=== PATIENT | female | born 1975 | race Two or more races ===

== ENCOUNTER 2024-11-15 20:44 | Emergency (ER) | payer MEDICAID, SELFPAY ==
--- NOTE | 2024-11-15 20:47 | EKG_ITS ---
[facility] Test Date: 2024-11-15 Pat Name: BRITANY TILLMAN Department: Room: - Gender: Female [employer]: : 1975 Requested By: ED Temporary Provider Order Number: [id number] Reading MD: ED Temporary Provider Measurements Intervals [place] Rate: 75 P: 44 RI: 141 QRS: 10 QRSD: 88 T: 28 QT: 383 QTc: 430 Interpretive Statements SINUS RHYTHM No previous ECG available for comparison /store/S0/[id number].pdf
[2024-11-15 21:25] VITALS: BP 158/102; BP 181/118; PULSE 82; RESP 24; TEMP 36.8; O2SAT 99
--- NOTE | 2024-11-15 21:30 | XR_ITS ---
Examination: CT brain head without contrast. 2-D sagittal coronal reconstructions Date and time of exam:November 15, 2024, 10:45 PM Indications: Headache vertigo and dizziness today CTDI: vol (mGy):56.7 DLP: (mGycm):1091 Technique: Multiple CT axial sections of the brain have been obtained, 5 mm slice thickness. Contrast has not been administered. 2-D sagittal, coronal reconstructions have been obtained Low dose protocols were performed. One or more of the following dose reduction techniques were used; automated exposure control, adjustment of the mA and/or KV according to patient size, use of iterative reconstruction technique. Findings: No significant ventricular enlargement. Intra-axial or extra-axial hemorrhage density is not seen. No mass effect or midline shift Basal cisterns are not remarkable. Fourth ventricle is midline. Cranial vault intact. Impression: Negative for acute hemorrhage, mass effect or midline shift If symptoms persist, consider brain MRI follow-up
--- NOTE | 2024-11-15 21:30 | XR_ITS ---
Examination: PA chest single view Technique: Upright PA chest single view Date and time: November 15, 2024, 2150 hrs. Indications: Headaches dizziness chest pain shortness of breath beginning 4 days ago Findings: Normal heart size Nodule with apparent calcification in the left lower lobe, 8 mm No pneumonia or pulmonary edema The osseous structures are intact Impression: No active disease Given the absence of prior chest films recommend 3 month follow-up PA chest to document stability of small nodule left lower lobe
--- NOTE | 2024-11-15 21:31 | PD.EDRME ---
Rapid Medical Screening Exam RME Arrival date/time: 11/15/24 20:44 This is a case of 49-year-old female with history of hypertension came in in the emergency room due to headache dizzines chest pain and shortness of breath since Friday no palpitation due to worsening of the symptoms this patient decided to start consult here in the emergency room patient is requesting Ativan because she is feeling anxious at the time of exam Chief Complaint: Dizziness Time Seen by Provider: 11/15/24 21:16 Vital signs: Vital Signs Temperature 98.2 F 11/15/24 21:25 Pulse Rate 82 11/15/24 21:25 Respiratory Rate 24 H 11/15/24 21:25 Blood Pressure 181/118 H 11/15/24 21:25 Pulse Oximetry (%) 99 11/15/24 21:25 Oxygen Delivery Method Room Air 11/15/24 21:25
[2024-11-15 21:45] VITALS: BP 181/118; PULSE 82
[2024-11-15 22:18] LABS: Basophils # (Auto) 0.1 Thou/mm3 (0.0-0.2); Basophils % (Auto) 1 % (0-2.5); Eosinophils # (Auto) 0.2 Thou/mm3 (0.0-0.5); Eosinophils % (Auto) 2 % (0-10); Hematocrit 38.6 % (36.0-46.0); Hemoglobin 13.2 g/dL (12.0-16.0); Immature Granulocytes Auto 0.05 Thou/mm3 (0.00-0.00); Lymphocytes # (Auto) 1.7 Thou/mm3 (1.0-4.8); Lymphocytes % (Auto) 18 % (10-50); Mean Corpuscular HGB Conc 34.2 g/dl (31.0-37.0); Mean Corpuscular Hemoglobin 30.1 pg (25.0-35.0); Mean Corpuscular Volume 88 fL (80-100); Monocytes # (Auto) 0.7 Thou/mm3 (0.0-0.8); Monocytes % (Auto) 7 % (0-12); Neutrophils # (Auto) 6.7 Thou/mm3 (1.8-7.7); Neutrophils % (Auto) 71 % (37-80); Nucleated Red Blood Cell # 0.00 Thou/mm3 (0.00-0.00); Nucleated Red Blood Cell % 0 /100 WBC (0); Platelet Count 389 Thou/mm3 (140-440); RDW Standard Deviation 40.1 fL (36.4-46.3); Red Blood Count 4.39 Miln/mm3 (4.00-5.20); White Blood Count 9.6 Thou/mm3 (3.6-11.0)
[2024-11-15 22:37] LABS: Alanine Aminotransferase 12 U/L (10-49); Albumin, Serum 4.3 gm/dL (3.5-5.0); Albumin/Globulin Ratio 1.7 (1.2-2.2); Alkaline Phosphatase 67 U/L (46-116); Anion Gap 9 (7-16); Aspartate Amino Transferase 18 U/L (0-34); BUN/Creatinine Ratio 6 Ratio (12-20); Bilirubin,Total 0.5 mg/dL (0.3-1.2); Blood Urea Nitrogen 5 mg/dL (9-23); Calcium 9.4 mg/dL (8.3-10.6); Calcium (Corrected) 9.4 mg/dL (8.5-10.1); Carbon Dioxide 28.6 mMol/L (20.0-31.0); Chloride 103 mMol/L (98-107); Creatinine (Component) 0.8 mg/dL (0.6-1.3); Globulin 2.6 gm/dL (2.3-3.5); Glucose 97 mg/dL (74-106); Osmolality,Calculated 278 (275-295); Potassium 3.2 mMol/L (3.4-5.1); Sodium 141 mMol/L (136-145); Total Protein 6.9 gm/dL (5.7-8.2); Troponin I < 0.020 ng/mL (0.0-0.045); eGFR > 60 See Note
--- NOTE | 2024-11-16 | PC.NURSE ---
CALLED TO GET URINE SPECIMEN, NO ANSWER AT ER LOBBY OR OUTSIDE ER.
--- NOTE | 2024-11-16 00:15 | PC.NURSE ---
NO ANSWER AT ER LOBBY OR OUTSIDE ER TO COLLECT URINE.
--- NOTE | 2024-11-16 00:30 | PC.NURSE ---
NO ANSWER AT ER LOBBY OR OUTSIDE ER TO BE PUT TO ROOM.
== END 2024-11-16 00:32 | disposition left against medical advice (07) ==
PROVIDERS: Nurse Practitioner Family; Emergency Provider Emergency Medicine; PCP Family Medicine
DX: R51.9 Headache, unspecified (principal); R07.9 Chest pain, unspecified; R06.02 Shortness of breath; R42 Dizziness and giddiness; I10 Essential (primary) hypertension; Z53.29 Procedure and treatment not carried out because of patient's decision for other reasons
CPT/HCPCS: 36415; 70450; 71045; 80053; 81001; 81025; 84484; 85025; 93005; 99284; A9270